=== PATIENT | female | born 1975 | race Caucasian/White ===

== ENCOUNTER → 2018-03-20 | Outpatient (CLI) | payer OTHER ==
[2005-11-01 07:40] VITALS: TEMP 98.1
== END ==
LOC: MC.RAD 07:26
DX: N63.11 Unspecified lump in the right breast, upper outer quadrant (principal)

== ENCOUNTER → 2018-09-15 | Outpatient (CLI) | payer OTHER ==
[2005-11-01 07:40] VITALS: TEMP 98.1
== END ==
LOC: MC.RAD 13:55
DX: N63.11 Unspecified lump in the right breast, upper outer quadrant (principal)
CPT/HCPCS: G0279

== ENCOUNTER → 2019-03-19 | Outpatient (CLI) | payer OTHER ==
[2005-11-01 07:40] VITALS: TEMP 98.1
== END ==
LOC: MC.RAD 07:20
DX: N63.11 Unspecified lump in the right breast, upper outer quadrant (principal)
CPT/HCPCS: G0279

== ENCOUNTER → 2020-03-23 | Outpatient (CLI) | payer OTHER ==
[2005-11-01 07:40] VITALS: TEMP 98.1
== END ==
LOC: MC.RAD 15:40
DX: Z12.31 Encounter for screening mammogram for malignant neoplasm of breast (principal); N63.11 Unspecified lump in the right breast, upper outer quadrant

== ENCOUNTER → 2021-10-10 | Outpatient (CLI) | payer OTHER ==
[2005-11-01 07:40] VITALS: TEMP 98.1
== END ==
LOC: COL.PUL 12:37
DX: R06.02 Shortness of breath (principal)
CPT/HCPCS: J7674